=== PATIENT | female | born 1980 | race Hispanic/Latino ===

== ENCOUNTER 2016-11-20 07:19 | Emergency (ER) | payer OTHER ==
--- NOTE | 2016-11-20 08:47 | PROVIDER DOCUMENTATION ---
HPI-Work Related Injury - General Source: patient - History of Present Illness-Work Injury Location of Pain/Injury: reports: lower extremity (L knee) Pain Radiation: reports: no radiation Quality of Pain: reports: aching Severity: reports: mild Onset/Duration: reports: this morning (529) Timing: reports: still present Modifying Factors: improves with: nothing Associated Symptoms: reports: weakness, trouble walking. denies: anxiety, arm pain, back/neck pain, chest pain, constipation, cough, diaphoresis, diarrhea, dizziness, EENT symptoms, fatigue, fever/chills, genitourinary problems, headaches, heartburn, joint pain, loss of appetite, malaise, muscle aches, sinus congestion/drainage, nausea, rash, seizure, shortness of breath, sensory/ motor loss, pain with inspiration, swelling/mass in abdomen, syncope, vomiting Similar Symptoms Previously?: No Recently seen or treated by another doctor?: No <Deanna Perez - Last Filed: 11/20/16 09:47> <Manpreet Mcnamara - Last Filed: 11/20/16 09:58> - General Chief Complaint: Work Related Injury Stated Complaint: WORK RELATED INJURY Time Seen by Provider: 11/20/16 07:31 Allergies/Adverse Reactions: Patient Allergies Allergy/AdvReac Type Severity Reaction Status Date / Time No Known Allergies Allergy Verified 11/20/16 08:22 Home Medications: Home Medication List Medication Instructions Recorded Confirmed Last Taken Type Cyclobenzaprine [Flexeril] 10 mg PO HS #20 tablet 11/20/16 Unknown Rx Naproxen [Naprosyn] 500 mg PO BID #20 tablet 11/20/16 Unknown Rx - History of Present Illness-Work Injury Nature of PresentingProblem: Pt is 36 y/o F presents to the ED with L knee pain. Pt states was at work and was in a nunez and twisted L knee. Pt states pain with walking. Pt denies falling or LOC. (Deanna Perez) Review of Systems - Adult - REVIEW OF SYSTEMS - ADULT Constitutional: denies: chills, fever Eyes: denies: blurred vision, double vision Ears, Nose, Mouth & Throat: denies: ear pain, nose pain, throat pain Cardiovascular: denies: chest pain, heart murmur, irregular heart rate Respiratory: denies: cough, shortness of breath, wheezing Gastrointestinal: denies: abdominal pain, diarrhea, nausea, vomiting Genitourinary: denies: dysuria, hematuria Musculoskeletal: reports: other (L knee pain). denies: bone pain, joint pain, neck pain Integumentary: denies: hives, itching Neurological: denies: dizziness/vertigo, headache/migraines Psychiatric: reports: no symptoms reported Endocrine: reports: no symptoms reported Hematologic/Lymphatic: reports: no symptoms reported Allergic/Immunologic: reports: no symptoms reported All Other Systems: Reviewed and Negative <Barbara Perezomi - Last Filed: 11/20/16 09:47> Past History - Adult - PAST MEDICAL HISTORY-ADULT Review of Records: reports: Nursing Assessment Review, Medications Reviewed, Social history reviewed & non-contributory. Major Childhood Illnesses: reports: denies history Cardiovascular: reports: denies history Respiratory: reports: denies history Gastrointestinal: reports: denies history Obstetrical/Gynecological: reports: denies history Genitourinary: reports: denies history Musculoskeletal: reports: denies history Neurological: reports: denies history Endocrine/Immune: reports: denies history Other Conditions: reports: denies history - PRIOR SURGERIES/PROCEDURES Surgical/Procedure History: reports: cholecystectomy, hysterectomy, - IMMUNIZATION STATUS Childhood Immunizations: See Nurse Assessment Flu Vaccine: See Nurse Assessment - FAMILY HISTORY Family History: reviewed, not pertinent - SOCIAL HISTORY Smoking: denies Substance Use: denies Living Situation: family <Era Perezi - Last Filed: 11/20/16 09:47> Physical Exam-Injury Related - Physical Exam-Injury Related Initial Vital Signs Reviewed: Yes General Appearance: appears well, alert, no apparent distress Eyes: PERRL/EOMI, pink conjunctivae, fundi clear, no AV nicking Head, Ears, Nose, Mouth & Throat: normocephalic/atraumatic, moist mucous membranes, normal ENT inspection, TMs normal, pharynx normal Neck: non-tender, full range of motion, supple, normal inspection Respiratory: chest non-tender, lungs clear, normal breath sounds, no pleuratic chest pain, no respiratory distress, no accessory muscle use Cardiovascular: normal peripheral pulses, regular rate, rhythm, no edema, no gallop, no JVD, no murmur Abdominal Exam: normal bowel sounds, non tender, soft, no organomegaly, no pulsatile mass Lymphatic: no adenopathy Back Exam: normal inspection, no CVA tenderness, no vertebral tenderness Extremity: no pedal edema, no calf tenderness, swelling (L knee), tenderness (L knee). negative: normal range of motion (limited ROM to L knee due to pain), deformity Integumentary: normal color, warm/dry Neurologic: grossly normal Psych/Mental Status: normal mood/affect, oriented x 3 <Deanna Perez - Last Filed: 11/20/16 09:47> Progress - XRAY 1 XRAY: Left XRAY Study: Knee Impression: Normal XRAY Interpretation: negative per Dr. Mcnamara 2 XRAY: Left XRAY Study: Ankle Impression: Normal XRAY Interpretation: negative per Dr. Mcnamara <Deanna Perez - Last Filed: 11/20/16 09:47> <Manpreet Mcnamara - Last Filed: 11/20/16 09:58> - PLAN OF CARE/RESULTS Progress/Plan/Lab Results: Orders Category Date Time Status ANKLE COMPLETE LEFT [RAD] Stat Exams 11/20/16 07:48 Taken KNEE 3 VIEWS LEFT [RAD] Stat Exams 11/20/16 08:37 Ordered Vital Signs - 24 hr 11/20/16 07:32 Temperature 98.3 F Pulse Rate 69 Respiratory 18 Rate Blood Pressure 125/68 O2 Sat by Pulse 100 Oximetry (Deanna Preez) Orders Category Date Time Status Knee Immobilizer .left Care 11/20/16 09:54 Active ANKLE COMPLETE LEFT [RAD] Stat Exams 11/20/16 07:48 Taken KNEE 3 VIEWS LEFT [RAD] Stat Exams 11/20/16 08:37 Taken Vital Signs Temp Pulse Resp BP Pulse Ox 11/20/16 07:32 98.3 F 69 18 125/68 100 No Known Allergies Allergy (Verified 11/20/16 08:22) Cyclobenzaprine [Flexeril] 10 mg PO HS #20 tablet 11/20/16 Naproxen [Naprosyn] 500 mg PO BID #20 tablet 11/20/16 Orders Category Date Time Status Knee Immobilizer .left Care 11/20/16 09:54 Active ANKLE COMPLETE LEFT [RAD] Stat Exams 11/20/16 07:48 Taken KNEE 3 VIEWS LEFT [RAD] Stat Exams 11/20/16 08:37 Taken (Manpreet Mcnamara) Departure <Deanna Perez - Last Filed: 11/20/16 09:47> - Departure Time of Disposition Order: 09:57 Certified Medical Emergency: Emergent <AndersManpreet Rosales - Last Filed: 11/20/16 09:58> - Departure DIAGNOSIS: Left knee sprain Qualifiers: Encounter type: initial encounter Involved ligament of knee: unspecified ligament Qualified Code(s): S83.92XA - Sprain of unspecified site of left knee, initial encounter Disposition: HOME 01 Condition: Stable Additional Instructions: Follow up with [facility] for further management. Return to ER as needed. ED Follow Up Instructions: You have been treated by a care provider in the Emergency Department. These instructions are being provided to you so you can have an understanding of how to care for yourself upon discharge. Upon discharge from the Emergency Department, you are responsible for making arrangements for follow-up care by a physician of your choice. Take all prescribed medications as directed. Return to the Emergency Department immediately for any new or worsening symptoms. You may call the Physician Referral phone number at [phone] to obtain a list of Physicians who are taking new patients. Prescriptions: Cyclobenzaprine [Flexeril] 10 mg PO HS #20 tablet Naproxen [Naprosyn] 500 mg PO BID #20 tablet Referrals: Maria E Hunter MD [Primary Care Provider] - Forms: Work Excuse Instructions: Knee Sprain, [id number] Attestation - Scribe Verification/Attestation Scribe:: Deanna Perez Acting as Scribe for:: Manpreet Mcnamara Scribe documention review:: This chart was documented by a scribe and accurately reflects the service the provider performed and the decisions made by the provider. <Deanna Perez - Last Filed: 11/20/16 09:47> Physician Attestation
[2016-11-20 11:19] VITALS: BP 122/70
--- NOTE | 2016-11-20 11:35 | Diag Imaging Result Document ---
PROCEDURE NAME: ANKLE COMPLETE LEFT - 11/20/2016 PLAIN RADIOGRAPH OF THE LEFT ANKLE, 3 VIEWS: COMPARISON: None available. FINDINGS: There is no discrete fracture, dislocation, or intrinsic osseous lesion. The visualized joint spaces are essentially unremarkable. The surrounding soft tissues are grossly unremarkable. IMPRESSION: No evidence of acute osseous abnormality.
--- NOTE | 2016-11-20 12:11 | Diag Imaging Result Document ---
PROCEDURE NAME: KNEE 3 VIEWS LEFT - 11/20/2016 PLAIN RADIOGRAPH THE LEFT KNEE, 3 VIEWS: COMPARISON: None available. FINDINGS: There is no discrete fracture, dislocation, or intrinsic osseous lesion. The visualized joint spaces are essentially unremarkable. The surrounding soft tissues are grossly unremarkable. IMPRESSION: No evidence of acute osseous abnormality.
== END 2016-11-20 11:19 | disposition home or self-care (01) ==
LOC: ED 07:19
DX: S83.92XA Sprain of unspecified site of left knee, initial encounter (principal); M25.562 Pain in left knee; R26.2 Difficulty in walking, not elsewhere classified; R53.1 Weakness; M25.462 Effusion, left knee; X58.XXXA Exposure to other specified factors, initial encounter